=== PATIENT | female | born 1940 | race African-American/Black ===

== ENCOUNTER 2017-01-01 18:30 | Inpatient (IN) | payer BC ==
--- NOTE | ~2017-01-01 | CN ---
Consultation Report [address] [id number] [facility] [place]. [address] NAME: MELANIE FLOREZ : 40 STATUS : ADM IN [facility]#: [id number] AGE: 76 ADM/REG DATE : 01/01/17 MR#: [id number] REPORT SERV DATE: 01/02/17 DICTATED BY: ELIZABETH CHAVEZ DATE: 01/02/17 REPORT STATUS : Draft TRANSCRIBED BY: MODBautista DATE: 01/02/17 CARDIOLOGY CONSULTATION DATE OF CONSULTATION: 01/02/2017 HISTORY OF PRESENT ILLNESS: 76-year-old, female without significant past cardiac history who presents with four-day history of generalized myalgias, fatigue, and intermittent dry, nonproductive cough. The patient reports subjective chills. No subjective fever. Denies chest pain or dyspnea. Denies palpitations, presyncope or syncope. Denies orthopnea or paroxysmal nocturnal dyspnea. Denies lower extremity edema or significant weight gain. The patient reports significant anorexia with marked decrease in fluid and oral intake over the last five days. The patient was seen in the emergency department in the course of evaluation, for unclear reasons, a troponin was ordered which was elevated at 5. It is noted that patient's primary care physician recently prescribed azithromycin pack, however, the patient had no improvement in symptoms following initiation of this. The patient is currently resting comfortably in no distress. PAST MEDICAL HISTORY: Hypertension and hyperlipidemia. PAST SURGICAL HISTORY: Hysterectomy. ALLERGIES: NO KNOWN DRUG ALLERGIES. MEDICATIONS: 1. Amlodipine/benazepril 5/10 mg daily. 2. Azithromycin dose pack 250 mg daily x5 days. 3. Iron polysaccharide 200 mg daily. 4. Metoprolol succinate 50 mg b.i.d. 5. Simvastatin 20 mg daily. REVIEW OF SYSTEMS: Negative for all organ systems except per the history of present illness. SOCIAL HISTORY: The patient denies previous tobacco, alcohol, or illicit drug use. FAMILY HISTORY: Notable only for hypertension. No history of coronary artery disease, cerebrovascular disease in the family. PHYSICAL EXAMINATION: VITAL SIGNS: Blood pressure 100/64, pulse 100, respirations 16 and unlabored, saturating 93% on 2 liters nasal cannula. GENERAL: Fatigued-appearing elderly female, in no acute distress. Consultation Report [place] [address] [id number] [facility] [place]. [address] NAME: MELANIE FLOREZ : 40 STATUS : ADM IN PAT#: [id number] AGE: 76 ADM/REG DATE : 01/01/17 MR#: [id number] REPORT SERV DATE: 01/02/17 DICTATED BY: ELIZABETH CHAVEZ DATE: 01/02/17 REPORT STATUS : Draft TRANSCRIBED BY: BRAYAN DATE: 01/02/17 HEENT: Normal. NECK: Supple, no JVD or bruit, normal carotid upstroke bilaterally, no thyromegaly. LUNGS: Clear to auscultation and percussion. No wheezes, rales or rhonchi. No use of accessory muscles. CARDIOLOGY: Regular rhythm, normal S1, S2, no thrill, no murmur or gallops, normal PMI. No rub is noted. ABDOMEN: Bowel sounds positive, soft, nontender, and nondistended. No masses or aortic bruits. No hepatosplenomegaly or hepatojugular reflux. EXTREMITIES: No edema. Normal pulses. No clubbing or cyanosis. SKIN: Warm and dry, no significant rash. NEUROLOGIC: Alert and oriented x 3. Appropriate mood. LABORATORY DATA: Sodium 140, potassium 4.2, chloride 105, BUN 56, creatinine 1.97(2.08 on admission). Glomerular filtration rate 28 mL/min. Glucose 155. Calcium 8. Magnesium 2.7. WBC 8.9, hemoglobin 15.8, hematocrit 47.5, platelets 178,000. INR 1.1. Serial troponins 5.01, 5.21, and 5.21. BNP elevated 848. Thyroid stimulating hormone is normal at 0.986. Lactate elevated at 3.9. EKG: Sinus tachycardia. Poor R-wave progression suggesting possible previous anterior wall myocardial infarction. Left anterior fascicular block. Influenza screens are negative. Chest x-ray: Mild cardiomegaly. CT of the chest without contrast: Cardiomegaly with small nonspecific pericardial effusion. "No acute CHF pattern" and segmental signs atelectasis in the left lower lobe. No obvious obstructing lung mass or endobronchial lesion. Subtle ill-defined ground glass patchy opacities inferiorly in the bilateral posterior lung bases. Ventilation perfusion scan. "Triple match pattern" of a large segmental sinus ventilation or perfusion defect corresponding to dense atelectasis in the left lower lobe on CT of the chest. Consider intermittent probability for pulmonary embolus. IMPRESSION: Elevated troponin-EKG demonstrates possible previous old anterior wall myocardial infarction. Echocardiogram ordered to evaluate cardiac structure and function and to more clearly identify degree of pericardial effusion. The pericardial effusion is called small by CT. The patient's symptoms appear most consistent with a viral syndrome with possible underlying myocarditis secondary to same as an etiology for elevated troponin. Due to the presence of pericardial effusion and no acute EKG changes in the absence of chest pain, I am not inclined to anticoagulate the patient at this time. She does have an intermediate risk ventilation perfusion scan for pulmonary embolus. This abnormality appears correlate with area of dense atelectasis at the left base. We will defer the same to the hospitalist at this time. We will await results of the echocardiogram. Consultation Report [address] [place]. [address] NAME: MELANIE FLOREZ : 40 STATUS : ADM IN [facility]#: [id number] AGE: 76 ADM/REG DATE : 01/01/17 MR#: [id number] REPORT SERV DATE: 01/02/17 DICTATED BY: ELIZABETH CHAVEZ DATE: 01/02/17 REPORT STATUS : Draft TRANSCRIBED BY: MODBautista DATE: 01/02/17 Thank you for the opportunity to see the patient in consultation. CSL/MODL Ivonne Chavez M.D. / [id number] CC: MD Jacob Sainz M.D.
--- NOTE | ~2017-01-01 | HP ---
History And Physical [id number] [place]. [address] NAME: MELANIE FLOREZ : 40 STATUS : ADM IN [facility]#: [id number] AGE: 76 ADM/REG DATE : 01/01/17 MR#: [id number] REPORT SERV DATE: 01/02/17 DICTATED BY: AMARIS BURGOS DATE: 01/02/17 REPORT STATUS : Draft TRANSCRIBED BY: MODBautista DATE: 01/02/17 DATE OF ADMISSION: 01/01/2017 CHIEF COMPLAINT: Fatigue and cough. HISTORY OF PRESENT ILLNESS: This is a 76-year-old female with medical history of hypertension and dyslipidemia, who presented to the emergency room with complaints of generalized fatigue and cough. The patient reports she was in her usual state of health until 4 days ago where she developed generalized fatigue, generalized muscle pain, and subsequently developed a cough that was productive of whitish sputum. There was associated chills, but denies any fever, no chest pain and no shortness of breath. No palpitations, no leg swelling, no orthopnea, no PND, no presyncopal or syncopal episode. The patient works as a caregiver one of her patient was recently diagnosed with pneumonia and was successfully treated with antibiotics at the hospital. The patient also reports that she has never had any symptoms similar to this in the past. She was never diagnosed with any coronary artery disease or congestive heart failure. The patient reports denies any history of recent travel, denies any prolonged immobilization or recent surgery. Of note, the patient had called her primary care physician who prescribed azithromycin 250 mg tab for possible bronchitis/pneumonia, but had no significant improvement in her symptoms. Hence, the patient decided to come to the ER for further evaluation. On presentation to the ER, the patient was tachycardic and noted to have significantly elevated troponin of 5.08, but had no chest pain, no shortness of breath, and was not hypoxic. An assessment of NSTEMI was made in the ER and the Hospitalist Service was contacted for admission. At the time of my evaluation, the patient reports that she has never had any chest pain, no shortness of breath. No leg swelling. The rest of the HPI was as dictated above. PAST MEDICAL HISTORY: 1. Hypertension. 2. Dyslipidemia. PAST SURGICAL HISTORY: Hysterectomy. ALLERGIES: NO KNOWN DRUG ALLERGIES. CURRENT MEDICATIONS: 1. Lotrel 5/10 mg one cap every morning. 2. Zocor 20 mg p.o. every day. 3. Toprol 50 mg p.o. b.i.d. 4. Z-Jagdish 250 mg p.o. daily for 5 days started on 12/30/2016. History And Physical [address] [address] NAME: MELANIE FLOREZ : 40 STATUS : ADM IN [facility]#: [id number] AGE: 76 ADM/REG DATE : 01/01/17 MR#: [id number] REPORT SERV DATE: 01/02/17 DICTATED BY: AMARIS BURGOS DATE: 01/02/17 REPORT STATUS : Draft TRANSCRIBED BY: BRAYAN DATE: 01/02/17 SOCIAL HISTORY: The patient denies drinking alcohol, smoking cigarettes or illicit drug use. FAMILY HISTORY: Significant for hypertension, no known history of coronary artery disease in the family. PHYSICAL EXAMINATION: VITAL SIGNS: Blood pressure was 142/60, pulse was 128 beats per minute, saturating 99% on room air, respiratory rate 18 cycles per minute. Physical examination general not in any acute distress. Lying comfortably in bed. HEENT: Normocephalic atraumatic. Extraocular muscles intact. Pupils are equal, round, and reactive. No pallor. No jaundice. No anicteric. Oral mucosa moist. CHEST: Equal expansion. Nontender. LUNGS: Overall prominent rhonchi in the right lower lung field. No crackles and no wheezes. CARDIOVASCULAR: Regular rate and rhythm. Tachycardic, S1 and S2. No murmurs, no gallops. No rubs. ABDOMEN: Bowel sounds normoactive. Soft and nontender. No palpably enlarged organomegaly. No hepatojugular reflux. LOWER EXTREMITIES: No pedal edema. LABORATORY DATA: Chemistry; sodium 139, potassium 4.0, chloride 101, bicarb 17, BUN 47, creatinine 2.08, GFR 23. Glucose 189. Calcium 8.3, magnesium 2.9. Troponin 5.19. Hematology; hemoglobin 16.8, hematocrit 50, MCV 89.3, platelet 174. PT 13.8 and INR 1.1. 1. Influenza A and B screen negative. 2. BNP 848.4. 3. Procalcitonin is 0.29. 4. Lactate 4.36. 5. Chest CT without contrast. IMPRESSION: 1. Cardiomegaly with a small nonspecific pericardial effusion, no acute congestive heart failure pattern. 2. Dense segmental size atelectasis left lower lobe. No visible associated central obstructing lung mass or endocardial lesion. 3. Septal ill defined ground glass patchy opacity inferiorly segment and both posterior lung bases of uncertain etiology. This may represent ill-defined atelectasis or early infectious/inflammatory process or early pneumonia. 4. V/Q scan. Impression; triple much part of a large segmental size ventilation or perfusion defects corresponding to this atelectasis of the left lower lobe on CT chest. This is considered of indeterminate probability for pulmonary embolus. ASSESSMENT AND PLAN: 1. Elevated troponin likely due to possible viral myocarditis. Given, the patient's constellation of respiratory symptoms of cough, shortness of breath, exposure to a possible to the patient with acute febrile illness without any chest pain, this is concerning for possible myocarditis pattern. At this time, we will hold off initiating heparin drip. Given also the presence of pericardial effusion and less concern for a possible ischemia at this time. We will add aspirin to patient's medication 81 mg. We will continue to monitor patient's troponin. This case has been discussed with the magistrate. Also, it is noted that the patient's V/Q scan shows indeterminate probability for PE. Also the CT findings of possible bronchopneumonia also noted. History And Physical [address] [address] NAME: MELANIE FLOREZ : 40 STATUS : ADM IN [facility]#: [id number] AGE: 76 ADM/REG DATE : 01/01/17 MR#: [id number] REPORT SERV DATE: 01/02/17 DICTATED BY: AMARIS BURGOS DATE: 01/02/17 REPORT STATUS : Draft TRANSCRIBED BY: MODL DATE: 01/02/17 2. Pneumonia. Based on the CT finding, although patient has no significant elevation in white cell count and procalcitonin is 0.029, given the patient has received antibiotics prior to presentation and this may max on inflammatory response at this time. Out of abundance of caution, I will continue patient on broad-spectrum antibiotics with cefepime and azithromycin at this time. 3. Pericardial effusion. The patient noted to have pericardial effusion both on chest x- ray and on CT imaging. We will order an echocardiogram in the morning and to continue to monitor. Cardiology has been notified about this new finding of pericardial effusion on CT. It is noted that at this time, the patient's blood pressure is stable. No evidence of tamponade physiology on physical examination. We will continue to monitor patient's vitals closely. 4. Acute kidney injury likely secondary to reduced p.o. intake secondary to severe fatigue. We will continue to monitor the patient's creatinine. We will hold of initiating IV fluid at this time. Given the patient's significantly elevated BNP. We will encourage the patient to increase oral p.o. intake at this time. We will continue to monitor creatinine closely. 5. Code status. Full code. 6. Admission and disposition inpatient. 7. Consult Cardiology input appreciated. IOO/MODL aris Burgos MD / [id number] CC: MD Jacob Sainz M.D.
--- NOTE | ~2017-01-01 | OP ---
Record Of Critical access hospital [address] [facility] [place]. [address] NAME: MELANIE FLOREZ : 40 STATUS : ADM IN [facility]#: [id number] AGE: 76 ADM/REG DATE : 01/01/17 MR#: [id number] REPORT SERV DATE: 01/04/17 DICTATED BY: VELMA PATEL DATE: 01/04/17 REPORT STATUS : Draft TRANSCRIBED BY: MODL DATE: 01/04/17 DATE OF PROCEDURE: 01/04/2017 PREOPERATIVE DIAGNOSES: 1. Large pericardial effusion. 2. Possible myocarditis syndrome. 3. Hypertension. 4. Obesity. 5. Acute kidney injury. POSTOPERATIVE DIAGNOSES: 1. Large pericardial effusion. 2. Possible myocarditis syndrome. 3. Hypertension. 4. Obesity. 5. Acute kidney injury. PROCEDURE PERFORMED: Subxiphoid pericardial window with drainage of pericardial fluid. SURGEON: Velma Patel M.D. MILIEU MANAGER: Jamie Wills. ANESTHESIA: General. REFERRING BELL STAFF: Scott Chavez M.D. INDICATIONS: This is an obese 76-year-old female who presented after five days of malaise and fatigue and anorexia. She admitted to fevers and chills at home and mild recent cough. On admission to the hospital, the patient was short of breath, but dyspnea quickly resolved. On her evaluation in the emergency room, she was found to have an elevated troponin and Cardiology was consulted. A CT scan in the emergency room demonstrated small pericardial effusion. There was concern because the next day the troponin level bumped slightly. She also has some supraventricular tachycardia. She underwent echocardiogram that demonstrated a large circumferential pericardial effusion. We were asked to see the patient for possible drainage of the pericardial effusion. Ventricular function was mildly reduced with ejection fraction of 40%. It was felt that her clinical picture and elevated troponin fit possible myocarditis syndrome. We were asked to perform a pericardial window with drainage of the pericardial fluid for treatment and further evaluation of the pericardial effusion. We discussed the operation with the patient and her family and they wished to proceed. FINDINGS: 1. There were about 160 mL of clear serous fluid around the pericardium, this was sent for cultures and cytology. 2. The pericardium itself was thin and pliable and did not appear acutely inflamed. It was sent for pathology. Record Of Operation [facility] [address] [facility] [place]. [address] NAME: MELANIE FLOREZ : 40 STATUS : ADM IN PAT#: [id number] AGE: 76 ADM/REG DATE : 01/01/17 MR#: [id number] REPORT SERV DATE: 01/04/17 DICTATED BY: VELMA PATEL DATE: 01/04/17 REPORT STATUS : Draft TRANSCRIBED BY: BRAYAN DATE: 01/04/17 DESCRIPTION OF PROCEDURE: The patient was brought to the operating suite where general anesthesia was induced, airway was secured with an endotracheal tube. No hypotension was noted. The patient's chest and abdomen were prepped with Hibiclens, ChloraPrep, draped with Ioban and sterile sheets. DANUTA probe was placed by Anesthesia and examination demonstrated a moderate-sized pericardial effusion with minimal anterior and inferior circumferential nature of the fluid. An incision was made directly over the xiphoid and carried through the subcutaneous tissue and skin. The linea alba was split in the midline for several centimeters inferior to the xiphoid. Retractor was placed under the xiphoid and left costal margin. This was elevated. We dissected cranial behind the sternum. We identified a pericardial fat and this was swept away from the pericardium. A small hole was made in the pericardium and about 160 mL of serous fluid were removed. Some of this was sent for cultures and cytology. Then, the pericardial space was irrigated with saline. DANUTA examination demonstrated resolution of effusion. A 19-mm Morales drain was placed through a separate stab incision and directed in the posterior pericardial space and secured to the skin. Once hemostasis was assured, the linea alba and clavipectoral fascia were reapproximated with #1 Stratafix as was subcutaneous tissue. The skin was closed in a subcuticular fashion. The patient tolerated the procedure well no complications. Sponge and needle counts were correct. DISPOSITION: The patient was extubated and taken to recovery room in stable condition. IDALIA/BRAYAN Velma Patel M.D. / [id number] CC: Kodi A. MD Ivonne Roth M.D.
--- NOTE | ~2017-01-01 | CN ---
Consultation Report [facility] [address] [place]. [address] NAME: MELANIE FLOREZ : 40 STATUS : ADM IN PAT#: [id number] AGE: 76 ADM/REG DATE : 01/01/17 MR#: [id number] REPORT SERV DATE: 01/03/17 DICTATED BY: HERB JACK DATE: 01/03/17 REPORT STATUS : Draft TRANSCRIBED BY: MODL DATE: 01/03/17 CONSULTATION DATE OF CONSULTATION: 01/02/2017 REASON FOR CONSULTATION: Moderate to large pericardial effusion, consideration for possible pericardial window. CHIEF COMPLAINT: "I have been sick with a cough." HISTORY OF PRESENT ILLNESS: This is a 76-year-old black female, very active, who reports that last week she developed a cough, fatigue, and general malaise. She notes that her employer had been ill with pneumonia, she also had children in her household that were sick, and she thought she might have a pneumonia. She denies having had any fevers, however. She has had chills. She denies any chest pain, tightness, pressure, syncope, near syncope, orthopnea, paroxysmal nocturnal dyspnea. She did call her primary care physician, Dr. Comer, who prescribed a Z-Jagdish. She did not have immediate improvement in her symptoms and so she came to the hospital. In the hospital, she underwent further variations with EKG which was abnormal, followed by troponin I, which was elevated. Chest x-ray was not diagnostic, and she did undergo a CT of the chest which was abnormal with bilateral infiltrates and airspace disease as well as left lower lobe atelectasis. Because of her elevated troponin I and abnormal EKG, cardiology consultation was obtained, and yesterday echocardiogram showed moderate to large pericardial effusion. We were asked to see for possible pericardial window and this was discussed with the patient and her daughter in the room today. PRIOR MEDICAL HISTORY: Significant for hypertension, hyperlipidemia, treated. She has a remote history of tobacco use. PRIOR SURGICAL HISTORY: Significant for hysterectomy. ALLERGIES: NONE KNOWN. MEDICATIONS AT HOME: Include Lotrel 5/10 one p.o. q.a.m., Z-Jagdish 250 mg p.o. x5 days, EzFe 200 mg p.o. q.a.m., metoprolol 50 mg p.o. b.i.d., and Zocor 20 mg p.o. q.a.m. FAMILY HISTORY: Significant for hypertension. She denies any family history of coronary artery disease or other disease processes. SOCIAL HISTORY: She has a remote history of tobacco use. Has not smoked in over 20 years. Denies use of alcohol or illicit drugs. She is employed. REVIEW OF SYSTEMS: GENERAL: Positive for fatigue and malaise. Negative for night sweats, recent weight Consultation Report [address] [place]. [address] NAME: MELANIE FLOREZ : 40 STATUS : ADM IN [facility]#: [id number] AGE: 76 ADM/REG DATE : 01/01/17 MR#: [id number] REPORT SERV DATE: 01/03/17 DICTATED BY: HERB JACK DATE: 01/03/17 REPORT STATUS : Draft TRANSCRIBED BY: BRAYAN DATE: 01/03/17 change, etc. RESPIRATORY: Positive for dry nonproductive cough. Negative for hemoptysis. Negative for wheezing. CARDIOVASCULAR: Negative for chest pain. Negative for prior heart problems. Negative for heart murmur or palpitations. GASTROINTESTINAL: Negative. GENITOURINARY: Negative. MUSCULOSKELETAL: Negative. NEUROLOGIC: Negative. HEMATOLOGY/ONCOLOGY. Negative. No history of blood clots or easy bruising or free bleeding. Otherwise, negative or as above. PHYSICAL EXAMINATION: GENERAL: She is a pleasant black female, in no acute distress. Her height is 170.18 cm. Weight 75.74 kg. VITAL SIGNS: Blood pressure 115/56, temperature 96.8, pulse is 99, respirations 18 regular and unlabored, and saturation 95% on room air. SKIN, HAIR, AND NAILS: Good hygiene. No lesions, masses, or rashes. HEENT: Normocephalic, atraumatic. Pupils are equal, round, and reactive to light and accommodation, wearing glasses. Sclerae clear, conjunctivae pink. Oral and buccal mucosa pink and moist. She has upper dentures in place. Mallampati class II airway. NECK: Supple. No restricted range of motion. No carotid bruits. No jugular venous distention. CHEST: Diminished breath sounds in the left lung base, otherwise clear without wheezes or rales. CARDIOVASCULAR: Regular rate and rhythm without murmur or rub. She has palpable symmetric central peripheral pulses, no clubbing, cyanosis, or edema. ABDOMEN: Soft, obese, nontender with normoactive bowel sounds. No hepatosplenomegaly. GENITOURINARY/RECTAL: Declined. MUSCULOSKELETAL: No kyphoscoliosis. No asymmetry. NEUROLOGIC: Alert and oriented to day, date, place, and situation. Speech is clear, fluent. No focal deficits. DATA: EKG showing left anterior fascicular block, left ventricular hypertrophy, nonspecific ST-T wave abnormality and yesterday rhythm strip showing supraventricular tachycardia with conversion to sinus rhythm after IV adenosine. CT chest from the 01/02/2017 is reviewed showing dense segmental size atelectasis left lower lobe and subtle ill-defined ground-glass patchy opacities inferiorly in both posterior lung bases of uncertain etiology. Noted was cardiomegaly with at that time, small nonspecific pericardial effusion, and no CHF pattern. Ventilation perfusion study showed ventilation perfusion defect in the left lung base corresponding with the area of atelectasis. Consultation Report [address] [address] NAME: MELANIE FLOREZ : 40 STATUS : ADM IN [facility]#: [id number] AGE: 76 ADM/REG DATE : 01/01/17 MR#: [id number] REPORT SERV DATE: 01/03/17 DICTATED BY: HERB JACK DATE: 01/03/17 REPORT STATUS : Draft TRANSCRIBED BY: BRAYAN DATE: 01/03/17 LABORATORY DATA: Today, sodium is 138, potassium 4.2, chloride 102, CO2 of 26, BUN 52, creatinine 1.42. CBC shows WBC is 9.1, hemoglobin 14.9 g, hematocrit 44.9%, and platelets 205,000. Urinalysis had small leukocyte esterase, no hematuria, no glucosuria. IMPRESSION: Moderate to large pericardial effusion. We were asked to see for possible drainage. This was discussed with the patient and her daughter today, and we talked about the surgery, usual perioperative course, indications, benefits, and risks. Risks include, but are not limited to, things such as pain, infection, pneumonia, low blood pressure resulting in damage to kidneys or liver, bleeding and need for blood or blood product transfusion, and even . The patient indicates her understanding and is willing to proceed. We have tentatively scheduled this for tomorrow and we will get back to the patient with a more certain time. We appreciate the opportunity to participate in her care. MAYNOR/BRAYAN Herb Jack N.P. / [id number] CC: MD Jacob Sainz M.D.
--- NOTE | ~2017-01-01 | DS ---
Discharge Summary [address] [id number] [place]. [address] NAME: MELANIE MORENO : 40 STATUS : DIS IN PAT#: [id number] AGE: 76 ADM/REG DATE : 01/01/17 MR#: [id number] REPORT SERV DATE: 01/12/17 DICTATED BY: RICK LUCAS DATE: 01/12/17 REPORT STATUS : Draft TRANSCRIBED BY: MODBautista DATE: 01/12/17 ADMISSION DATE: 01/01/2017 DISCHARGE DATE: 01/11/2017 DISCHARGE DIAGNOSES: 1. Large pericardial effusion on arrival, believed to be secondary to viral etiology. 2. Supraventricular tachycardia. 3. New atrial fibrillation. 4. Elevated troponin to have followup with Cardiology outpatient. 5. Acute kidney injury. 6. Community-acquired pneumonia. Completed treatment while inpatient. CONSULTATIONS: Dr. Chavez, Cardiology. Dr. Patel, CT surgery. PROCEDURE PERFORMED: Xiphoid pericardial window with drainage of pericardial fluid. DISCHARGE MEDICATIONS: Eliquis 5 mg one tab p.o. b.i.d., amiodarone 200 mg one tab p.o. b.i.d., metoprolol 50 mg one tab p.o. b.i.d. XL per Cardiology, atorvastatin 40 mg one tab p.o. at bedtime, Maxzide 25 mg one tab p.o. daily, Lotrel was stopped at this time, iron 200 mg p.o. every morning, Z-Jagdish was stopped. DISCHARGE FOLLOWUP: The patient declined Home Health. Follow up with CT Surgery and Cardiology for further completion of workup for troponins and resolution of symptoms; and PCP for followup of CBC, BMP, and hospital discharge. HOSPITAL COURSE: Please see H and P for complete details of HPI and interim summary by Dr. Anibal Tejeda for interim course. Briefly, Ms. Moreno is a very pleasant 76-year-old female with history of hypertension and hyperlipidemia, who presented after having fatigue and cough, was found to have pneumonia component, but additionally, cardiomegaly with nonspecific pericardial effusion. The patient did have a systolic ejection fraction of 45% with moderate left ventricular hypertrophy, but was concerned for additional water bottle appearance on x-rays. The patient was then found to have a large pericardial effusion requiring drainage with window. The patient tolerated the procedure well. Was able to have removal, and subsequent followup imaging showed stability with this. However, during monitoring, the patient did have elevated troponins and new decompensated EF. This will be continued to be followed up and worked up in outpatient setting to give time for healing from pericardial effusion. The patient did have multiple episodes of SVT. However, this did improve with adenosine and approximately on initial discharge disposition planning, the patient had new-onset atrial fibrillation, was placed on diltiazem. Had on and off episodes. Changed to amiodarone temporarily and placed on anticoagulation. The patient did have initial concern for pulmonary embolism and was unable to get CT initially because the patient did have acute kidney injury. When the patient was hydrated and treated for pneumonia and pericardial effusion, the patient was able to tolerate CT PE protocol, which was negative. The patient did have organized thrombus that was discussed with Cardiology. Independently, this clot was likely sequelae of pericardial effusion and by itself would not require anticoagulation; however, in the setting of atrial fibrillation, Discharge Summary [address] [place]. [address] NAME: MELANIE MORENO : 40 STATUS : DIS IN PAT#: [id number] AGE: 76 ADM/REG DATE : 01/01/17 MR#: [id number] REPORT SERV DATE: 01/12/17 DICTATED BY: RICK LUCAS DATE: 01/12/17 REPORT STATUS : Draft TRANSCRIBED BY: BRAYAN DATE: 01/12/17 anticoagulation was initiated for protection. All questions were answered with the patient and family at bedside. Discharge planning, education, and med reconciliation took greater than 30 minutes. DDN/MODL Rick Lucas MD / [id number] CC: MD Jacob Rawls M.D.
--- NOTE | ~2017-01-01 | IDS ---
Interim Discharge Summary [facility] [address] [place]. [address] NAME: MELANIE FLOREZ : 40 STATUS : ADM IN [facility]#: [id number] AGE: 76 ADM/REG DATE : 01/01/17 MR#: [id number] REPORT SERV DATE: 01/04/17 DICTATED BY: DATE: REPORT STATUS : Draft TRANSCRIBED BY: MODL DATE: 01/04/17 ADMISSION DATE: 01/01/2017 DISCHARGE DATE: INTERIM DISCHARGE DIAGNOSES: 1. Large pericardial effusion. 2. Supraventricular tachycardia. 3. Elevated troponin. 4. Acute kidney injury. 5. Community-acquired pneumonia. CONSULTING PHYSICIANS: Include Dr. Chavez with [facility] and Dr. Patel, CT surgeon. IMAGING: Includes multiple portable chest x-rays, the first being 01/01/2017 showing no acute process as read by the radiologist. However, there is a "water bottle appearance" suggestive of pericardial effusion. She also had a chest CT without contrast, which demonstrated cardiomegaly with a small nonspecific pericardial effusion. No acute CHF pattern. There is a dense segmental size atelectasis in the left lower lobe. No visible associated central obstructing mass or endobronchial lesion. There is a subtle ill-defined ground-glass patchy opacities inferiorly in both posterior lung bases of uncertain etiology. Likely, this is atelectasis, could be early pneumonia. The patient had a transthoracic echocardiogram, which demonstrated mildly decreased left ventricular systolic function with an estimated ejection fraction of 45%, moderate left ventricular hypertrophy, normal right ventricular size and mildly decreased systolic function. No significant valvular regurgitation or stenosis was noted. There is a medium to large size circumferential pericardial effusion without evidence of tamponade noted. Echogenic material along the right ventricle free wall and anterior LV/RV within the pericardial space suggestive of organized pericardial thrombus. The patient also had a ventilation perfusion scan, which demonstrated a "triple match pattern of a large segmental size ventilation or perfusion defect. V/Q scan is intermediate probability for pulmonary embolism. HOSPITAL COURSE/PROBLEM LIST: 1. Large pericardial effusion. The patient underwent a pericardial window by Dr. Patel today on 01/04/2017. Pericardial fluid was sent for culture, which was negative. There was about 160 mL of clear serous fluid around the pericardium that was sent for cultures and cytology. The pericardium was sent for pathology as well. The patient is doing well post pericardial window. Vital signs are stable. 2. Elevated troponin. Her troponin was 5.21. She denies any chest pain. She has not had chest pain what so ever. During her hospital course or prior to admission, her only symptom was dyspnea on admission. This is likely due to the large pericardial effusion mentioned above. [facility] is following. Unclear of the plan at this time whether the patient will have a heart catheterization or not. 3. SVT. The patient has had multiple episodes of SVT. This is likely related to the pericardial effusion. Hopefully, this will resolve now that she has had a pericardial window. She had an episode two days ago, for which she received one dose of adenosine which resolved the issue and then again last night around 10 p.m., she had an SVT with Interim Discharge Summary [address] [address] NAME: MELANIE FLOREZ : 40 STATUS : ADM IN [facility]#: [id number] AGE: 76 ADM/REG DATE : 01/01/17 MR#: [id number] REPORT SERV DATE: 01/04/17 DICTATED BY: DATE: REPORT STATUS : Draft TRANSCRIBED BY: MODL DATE: 01/04/17 a heart rate in the 180s and received one dose of adenosine 6 mg IV, which also resolved the issue. 4. Acute kidney injury. This has resolved. Her creatinine is down to 0.98. 5. Pneumonia. Based on the imaging and the patient's shortness of breath on initial presentation, the patient was being worked up for pneumonia; however, procalcitonin is negative. All cultures were negative. She has not had a fever. White blood cell count is normal, so I will discontinue her Levaquin. 6. Possible pulmonary embolism. V/Q scan was intermediate risk for pulmonary embolism. We were unable to place the patient on heparin drip due to the fact that she had a large pericardial effusion and needed a pericardial window. Unclear moving forward whether or not she will need to be anticoagulated at this time, it would be contraindicated. Again, the patient is hemodynamically stable. Awaiting Cardiology's plan to move forward. Further workup if cytology and pericardial biopsy are negative. The patient will likely need a further workup for her pericardial effusion precipitating factor. If the patient remained stable and it does not reaccumulate, maybe she would be safe to do this as an outpatient. CLR/MODL Anibal Tejeda NP / [id number] CC: MD Jacob Sainz M.D. Darshan D. Naik, MD
[2017-01-01 16:10] LABS: BASOPHILS 1.4 %; BASOPHILS ABSOLUTE 0.13 10/3/uL (0.0-0.16); EOSINOPHILS 0 %; HEMOGLOBIN 16.8 g/dL (12.0-16.0); IMMATURE GRANULOCYTES 0.3 %; IMMATURE GRANULOCYTES ABSOLUTE 0.03 10/3/uL (0.0-0.11); LYMPHOCYTES 20.3 %; LYMPHOCYTES ABSOLUTE 1.91 10/3/uL (0.67-4.30); MEAN CORPUS HGB CONC 33.6 g/dL (32.0-36.0); MEAN CORPUSCULAR VOLUME 89.3 fL (80-100); MEAN PLATELET VOLUME 11.1 fL (9.2-13.0); MONOCYTES 10.9 %; MONOCYTES ABSOLUTE 1.03 10/3/uL (0.21-1.20); NEUTROPHILS 67.1 %; NEUTROPHILS ABSOLUTE 6.31 10/3/uL (2.02-8.40); NUCLEATED RED BLOOD CELLS 0.6 /100WBC (0-0); PLATELET COUNT 174 10/3/uL (150-400)
[2017-01-01 16:11] LABS: ER CBC TAT 0 Hrs 09 Mins; MANUAL DIFF NO %; RBC DISTRIBUTION WIDTH 17.9 % (12.0-16.0); WHITE BLOOD CELLS 9.4 10/3/uL (4.5-10.5)
[2017-01-01 16:14] LABS: INTERNATIONAL NORMAL RATI 1.1 UNITS (-); PARTIAL THROMBO TIME 25.2 SEC (22.5-37.2); PROTIME (NOT ORD) 13.8 SEC (12.0-14.5)
[2017-01-01 16:24] LABS: CALCIUM, SERUM 8.3 MG/DL (8.5-10.4); CHLORIDE, SERUM 101 MMOL/L (96-112); POTASSIUM, SERUM 4.4 MMOL/L (3.5-5.3); SODIUM, SERUM 139 MMOL/L (135-148)
[2017-01-01 16:25] LABS: BUN (BLOOD UREA NITROGEN) 47 MG/DL (6-23); CHEST PAIN PROFILE TAT 0 Hrs 23 Mins; CO2 (CARBON DIOXIDE) 17 MMOL/L (24-34); CREATININE 2.08 MG/DL (0.55-1.02); GFR AFRICAN AMERICAN 26 ML/MIN (>=60); GFR NON AFRICAN AMERICAN 23 ML/MIN (>=60); GLUCOSE, SERUM 189 MG/DL (60-99); TROPONIN I 5.16 NG/ML (<0.05)
[2017-01-01 17:09] LABS: ER DIFF TAT 1 Hrs 07 Mins; LYMPHOCYTES 18 %; LYMPHOCYTES ABSOLUTE (CALC) 1.69 10/3/uL (0.67-4.30); MONOCYTES 9 %; MONOCYTES ABSOLUTE (CALC) 0.85 10/3/uL (0.21-1.20); NEUTROPHILS ABSOLUTE (CALC) 6.86 10/3/uL (2.02-8.40); PLATELET ESTIMATE ADQ (ADEQUATE); RBC MORPHOLOGY NORM (NORMAL); SEGMENTED NEUTROPHIL (0) 73 %; TOTAL NUCLEATED CELLS 100
[2017-01-01 17:40] LABS: INFLUENZA A SCREEN NEGATIVE (NEGATIVE); INFLUENZA B SCREEN NEGATIVE (NEGATIVE)
[2017-01-01 18:22] LABS: LACTATE 4.3 MMOL/L (0.3-2.4)
[2017-01-01] MEDS ORDERED: LOTREL1 CA1 PO (19:33)
[2017-01-01] MEDS ORDERED: TOPXL50 PO (19:33)
[2017-01-01] MEDS ORDERED: ZOCOR20 PO (19:33)
[2017-01-01] MEDS ORDERED: EZFE 200200 MG PO (19:34)
[2017-01-01] MEDS ORDERED: Z-PAK PO (19:36)
[2017-01-01 20:48] LABS: TROPONIN I 5.01 NG/ML (<0.05)
[2017-01-01 23:21] LABS: FREE T4 1.45 NG/DL (0.76-1.46); PHOSPHORUS, SERUM 4.1 MG/DL (2.5-4.5); ULTRASENSITIVE TSH 0.986 MCIU/ML (0.358-3.740)
[2017-01-02 02:38] LABS: HEMATOCRIT 47.5 % (36.0-48.0); HEMOGLOBIN 15.8 g/dL (12.0-16.0); MEAN CORPUS HGB CONC 33.3 g/dL (32.0-36.0); MEAN CORPUSCULAR HEMOGLOB 29.9 pg (26.0-34.0); MEAN PLATELET VOLUME 11.2 fL (9.2-13.0); PLATELET COUNT 178 10/3/uL (150-400); RBC DISTRIBUTION WIDTH 17.5 % (12.0-16.0); RED CELL COUNT 5.28 10/6/uL (4.0-5.6); WHITE BLOOD CELLS 8.9 10/3/uL (4.5-10.5)
[2017-01-02 02:41] LABS: MANUAL DIFF YES %
[2017-01-02 02:50] LABS: CHLORIDE, SERUM 105 MMOL/L (96-112); CREATININE 1.97 MG/DL (0.55-1.02); GFR AFRICAN AMERICAN 28 ML/MIN (>=60); GFR NON AFRICAN AMERICAN 24 ML/MIN (>=60); GLUCOSE, SERUM 155 MG/DL (60-99); PHOSPHORUS, SERUM 4.4 MG/DL (2.5-4.5); POTASSIUM, SERUM 4.2 MMOL/L (3.5-5.3); SODIUM, SERUM 140 MMOL/L (135-148)
[2017-01-02 02:52] LABS: ALBUMIN 2.6 G/DL (3.5-5.0); BUN (BLOOD UREA NITROGEN) 56 MG/DL (6-23); CO2 (CARBON DIOXIDE) 23 MMOL/L (24-34); TROPONIN I 5.21 NG/ML (<0.05)
[2017-01-02 03:03] LABS: BAND NEUTROPHILS 3 %; LYMPHOCYTES 20 %; LYMPHOCYTES ABSOLUTE (CALC) 1.78 10/3/uL (0.67-4.30); MONOCYTES 6 %; MONOCYTES ABSOLUTE (CALC) 0.53 10/3/uL (0.21-1.20); NEUTROPHILS ABSOLUTE (CALC) 6.59 10/3/uL (2.02-8.40); PLATELET ESTIMATE ADQ (ADEQUATE); RBC MORPHOLOGY NORM (NORMAL); SEGMENTED NEUTROPHIL (0) 71 %; TOTAL NUCLEATED CELLS 100
[2017-01-02 03:04] LABS: GIANT PLATELET OCC; REACTIVE LYMPHS OCC (0-2%) (0-5%)
[2017-01-02 12:41] LABS: ASCORBIC ACID (UR NOT ORDER) NEG (NEG); BILIRUBIN, URINE NEGATIVE (NEG); KETONE, URINE NEGATIVE (NEG); LEUKOCYTE ESTERASE(NOT OR SMALL (NEG); WBC (NOT ORDERED) (RFLEX) 15 (0-5)
[2017-01-03 04:37] LABS: BASOPHILS 0.2 %; BASOPHILS ABSOLUTE 0.02 10/3/uL (0.0-0.16); EOSINOPHILS 0.4 %; EOSINOPHILS ABSOLUTE 0.04 10/3/uL (0.0-0.53); HEMATOCRIT 44.9 % (36.0-48.0); HEMOGLOBIN 14.9 g/dL (12.0-16.0); IMMATURE GRANULOCYTES 0.5 %; IMMATURE GRANULOCYTES ABSOLUTE 0.05 10/3/uL (0.0-0.11); LYMPHOCYTES 29.9 %; LYMPHOCYTES ABSOLUTE 2.72 10/3/uL (0.67-4.30); MEAN CORPUS HGB CONC 33.2 g/dL (32.0-36.0); MEAN CORPUSCULAR VOLUME 90.3 fL (80-100); MEAN PLATELET VOLUME 10.8 fL (9.2-13.0); MONOCYTES 15.7 %; MONOCYTES ABSOLUTE 1.43 10/3/uL (0.21-1.20); NEUTROPHILS 53.3 %; NEUTROPHILS ABSOLUTE 4.84 10/3/uL (2.02-8.40); PLATELET COUNT 205 10/3/uL (150-400); RBC DISTRIBUTION WIDTH 17.9 % (12.0-16.0); RED CELL COUNT 4.97 10/6/uL (4.0-5.6); WHITE BLOOD CELLS 9.1 10/3/uL (4.5-10.5)
[2017-01-03 04:39] LABS: MANUAL DIFF NO %
[2017-01-03 04:56] LABS: A/G RATIO 0.6 (0.7-1.9); ALBUMIN 2.6 G/DL (3.5-5.0); CALCIUM, SERUM 7.9 MG/DL (8.5-10.4); CHLORIDE, SERUM 102 MMOL/L (96-112); CO2 (CARBON DIOXIDE) 26 MMOL/L (24-34); GLOBULIN 4.2 G/DL (2.5-4.1); POTASSIUM, SERUM 4.2 MMOL/L (3.5-5.3); SGOT(AST) 37 U/L (5-40); SGPT(ALT) 20 U/L (5-65); SODIUM, SERUM 138 MMOL/L (135-148); TOTAL PROTEIN 6.8 G/DL (6.0-8.5)
[2017-01-03 04:58] LABS: ALKALINE PHOSPHATASE 61 U/L (45-117); BUN (BLOOD UREA NITROGEN) 52 MG/DL (6-23); CREATININE 1.42 MG/DL (0.55-1.02); GFR AFRICAN AMERICAN 41 ML/MIN (>=60); GFR NON AFRICAN AMERICAN 36 ML/MIN (>=60); GLUCOSE, SERUM 98 MG/DL (60-99); PHOSPHORUS, SERUM 3.4 MG/DL (2.5-4.5); TOTAL BILIRUBIN 1.3 MG/DL (0-1.2)
[2017-01-04 04:41] LABS: BASOPHILS 0.2 %; BASOPHILS ABSOLUTE 0.02 10/3/uL (0.0-0.16); EOSINOPHILS 0.7 %; EOSINOPHILS ABSOLUTE 0.06 10/3/uL (0.0-0.53); IMMATURE GRANULOCYTES 1.1 %; IMMATURE GRANULOCYTES ABSOLUTE 0.09 10/3/uL (0.0-0.11); INTERNATIONAL NORMAL RATI 1.2 UNITS (-); LYMPHOCYTES 27.6 %; LYMPHOCYTES ABSOLUTE 2.31 10/3/uL (0.67-4.30); MEAN CORPUS HGB CONC 33.3 g/dL (32.0-36.0); MEAN CORPUSCULAR VOLUME 89.9 fL (80-100); MEAN PLATELET VOLUME 9.9 fL (9.2-13.0); MONOCYTES 12.9 %; MONOCYTES ABSOLUTE 1.08 10/3/uL (0.21-1.20); NEUTROPHILS 57.5 %; NUCLEATED RED BLOOD CELLS 1.2 /100WBC (0-0); PARTIAL THROMBO TIME 25.3 SEC (22.5-37.2); PLATELET COUNT 225 10/3/uL (150-400); RBC DISTRIBUTION WIDTH 17.8 % (12.0-16.0); RED CELL COUNT 4.67 10/6/uL (4.0-5.6); WHITE BLOOD CELLS 8.4 10/3/uL (4.5-10.5)
[2017-01-04 04:43] LABS: MANUAL DIFF NO %
[2017-01-04 04:49] LABS: BUN (BLOOD UREA NITROGEN) 33 MG/DL (6-23); CALCIUM, SERUM 8.3 MG/DL (8.5-10.4); CHLORIDE, SERUM 103 MMOL/L (96-112); CO2 (CARBON DIOXIDE) 24 MMOL/L (24-34); CREATININE 0.98 MG/DL (0.55-1.02); GFR AFRICAN AMERICAN 65 ML/MIN (>=60); GFR NON AFRICAN AMERICAN 56 ML/MIN (>=60); GLUCOSE, SERUM 105 MG/DL (60-99); PHOSPHORUS, SERUM 3.2 MG/DL (2.5-4.5); POTASSIUM, SERUM 3.9 MMOL/L (3.5-5.3); SODIUM, SERUM 139 MMOL/L (135-148)
[2017-01-05 05:45] LABS: BASOPHILS 0.1 %; BASOPHILS ABSOLUTE 0.01 10/3/uL (0.0-0.16); EOSINOPHILS 0 %; HEMATOCRIT 40.9 % (36.0-48.0); HEMOGLOBIN 13.2 g/dL (12.0-16.0); LYMPHOCYTES 11.1 %; MANUAL DIFF NO %; MEAN CORPUS HGB CONC 32.3 g/dL (32.0-36.0); MEAN CORPUSCULAR HEMOGLOB 29.4 pg (26.0-34.0); MEAN CORPUSCULAR VOLUME 91.1 fL (80-100); MEAN PLATELET VOLUME 9.7 fL (9.2-13.0); MONOCYTES 12.6 %; MONOCYTES ABSOLUTE 1.25 10/3/uL (0.21-1.20); NEUTROPHILS 75.2 %; NEUTROPHILS ABSOLUTE 7.44 10/3/uL (2.02-8.40); PLATELET COUNT 252 10/3/uL (150-400); RBC DISTRIBUTION WIDTH 18.1 % (12.0-16.0); RED CELL COUNT 4.49 10/6/uL (4.0-5.6); WHITE BLOOD CELLS 9.9 10/3/uL (4.5-10.5)
[2017-01-05 06:06] LABS: CHLORIDE, SERUM 106 MMOL/L (96-112); CO2 (CARBON DIOXIDE) 25 MMOL/L (24-34); CREATININE 1.02 MG/DL (0.55-1.02); GFR AFRICAN AMERICAN 62 ML/MIN (>=60); GFR NON AFRICAN AMERICAN 53 ML/MIN (>=60); PHOSPHORUS, SERUM 3.3 MG/DL (2.5-4.5); POTASSIUM, SERUM 4.3 MMOL/L (3.5-5.3); SODIUM, SERUM 140 MMOL/L (135-148)
[2017-01-05 06:10] LABS: BUN (BLOOD UREA NITROGEN) 22 MG/DL (6-23); GLUCOSE, SERUM 152 MG/DL (60-99)
[2017-01-06 05:48] LABS: BASOPHILS 0.1 %; BASOPHILS ABSOLUTE 0.01 10/3/uL (0.0-0.16); EOSINOPHILS 0.3 %; EOSINOPHILS ABSOLUTE 0.03 10/3/uL (0.0-0.53); HEMATOCRIT 39.7 % (36.0-48.0); HEMOGLOBIN 13.1 g/dL (12.0-16.0); IMMATURE GRANULOCYTES 1.1 %; LYMPHOCYTES 19.2 %; LYMPHOCYTES ABSOLUTE 1.72 10/3/uL (0.67-4.30); MEAN CORPUSCULAR HEMOGLOB 29.6 pg (26.0-34.0); MEAN CORPUSCULAR VOLUME 89.6 fL (80-100); MEAN PLATELET VOLUME 9.9 fL (9.2-13.0); MONOCYTES 14.3 %; MONOCYTES ABSOLUTE 1.28 10/3/uL (0.21-1.20); NEUTROPHILS ABSOLUTE 5.82 10/3/uL (2.02-8.40); PLATELET COUNT 252 10/3/uL (150-400); RBC DISTRIBUTION WIDTH 18.3 % (12.0-16.0); RED CELL COUNT 4.43 10/6/uL (4.0-5.6)
[2017-01-06 05:52] LABS: MANUAL DIFF NO %
[2017-01-06 06:09] LABS: A/G RATIO 0.6 (0.7-1.9); ALBUMIN 2.4 G/DL (3.5-5.0); ALKALINE PHOSPHATASE 57 U/L (45-117); CALCIUM, SERUM 8.4 MG/DL (8.5-10.4); CHLORIDE, SERUM 105 MMOL/L (96-112); CO2 (CARBON DIOXIDE) 26 MMOL/L (24-34); CREATININE 0.89 MG/DL (0.55-1.02); GFR AFRICAN AMERICAN 73 ML/MIN (>=60); GFR NON AFRICAN AMERICAN 63 ML/MIN (>=60); POTASSIUM, SERUM 4.2 MMOL/L (3.5-5.3); SGOT(AST) 28 U/L (5-40); SGPT(ALT) 16 U/L (5-65); SODIUM, SERUM 138 MMOL/L (135-148); TOTAL PROTEIN 6.4 G/DL (6.0-8.5)
[2017-01-06 06:10] LABS: BUN (BLOOD UREA NITROGEN) 18 MG/DL (6-23); GLUCOSE, SERUM 112 MG/DL (60-99); TOTAL BILIRUBIN 0.5 MG/DL (0-1.2)
[2017-01-08 04:53] LABS: BASOPHILS 0.1 %; BASOPHILS ABSOLUTE 0.01 10/3/uL (0.0-0.16); EOSINOPHILS 0.2 %; EOSINOPHILS ABSOLUTE 0.03 10/3/uL (0.0-0.53); HEMATOCRIT 38.8 % (36.0-48.0); HEMOGLOBIN 12.8 g/dL (12.0-16.0); IMMATURE GRANULOCYTES 0.3 %; IMMATURE GRANULOCYTES ABSOLUTE 0.04 10/3/uL (0.0-0.11); LYMPHOCYTES 13.2 %; MEAN CORPUSCULAR HEMOGLOB 29.8 pg (26.0-34.0); MEAN CORPUSCULAR VOLUME 90.2 fL (80-100); MEAN PLATELET VOLUME 9.6 fL (9.2-13.0); MONOCYTES 12.8 %; MONOCYTES ABSOLUTE 1.64 10/3/uL (0.21-1.20); NEUTROPHILS 73.4 %; NEUTROPHILS ABSOLUTE 9.44 10/3/uL (2.02-8.40); PLATELET COUNT 271 10/3/uL (150-400); RBC DISTRIBUTION WIDTH 18.6 % (12.0-16.0)
[2017-01-08 04:56] LABS: MANUAL DIFF NO %; WHITE BLOOD CELLS 12.9 10/3/uL (4.5-10.5)
[2017-01-08 05:04] LABS: CALCIUM, SERUM 8.2 MG/DL (8.5-10.4); CHLORIDE, SERUM 104 MMOL/L (96-112); CO2 (CARBON DIOXIDE) 26 MMOL/L (24-34); CREATININE 0.89 MG/DL (0.55-1.02); GFR AFRICAN AMERICAN 73 ML/MIN (>=60); GFR NON AFRICAN AMERICAN 63 ML/MIN (>=60); GLUCOSE, SERUM 121 MG/DL (60-99); POTASSIUM, SERUM 4.1 MMOL/L (3.5-5.3); SODIUM, SERUM 138 MMOL/L (135-148)
[2017-01-08 05:07] LABS: BUN (BLOOD UREA NITROGEN) 12 MG/DL (6-23)
[2017-01-09 05:50] LABS: A/G RATIO 0.5 (0.7-1.9); ALBUMIN 2.2 G/DL (3.5-5.0); BUN (BLOOD UREA NITROGEN) 9 MG/DL (6-23); CHLORIDE, SERUM 104 MMOL/L (96-112); CO2 (CARBON DIOXIDE) 27 MMOL/L (24-34); CREATININE 0.81 MG/DL (0.55-1.02); GFR AFRICAN AMERICAN 82 ML/MIN (>=60); GFR NON AFRICAN AMERICAN 71 ML/MIN (>=60); GLOBULIN 4.8 G/DL (2.5-4.1); GLUCOSE, SERUM 125 MG/DL (60-99); POTASSIUM, SERUM 4.2 MMOL/L (3.5-5.3); SGOT(AST) 17 U/L (5-40); SGPT(ALT) 15 U/L (5-65); SODIUM, SERUM 141 MMOL/L (135-148); TOTAL BILIRUBIN 0.7 MG/DL (0-1.2)
[2017-01-09 05:53] LABS: BASOPHILS 0.1 %; BASOPHILS ABSOLUTE 0.01 10/3/uL (0.0-0.16); EOSINOPHILS 1.1 %; EOSINOPHILS ABSOLUTE 0.13 10/3/uL (0.0-0.53); HEMATOCRIT 38.4 % (36.0-48.0); HEMOGLOBIN 12.7 g/dL (12.0-16.0); IMMATURE GRANULOCYTES 0.3 %; IMMATURE GRANULOCYTES ABSOLUTE 0.04 10/3/uL (0.0-0.11); LYMPHOCYTES 13.8 %; LYMPHOCYTES ABSOLUTE 1.62 10/3/uL (0.67-4.30); MEAN CORPUS HGB CONC 33.1 g/dL (32.0-36.0); MEAN CORPUSCULAR HEMOGLOB 29.7 pg (26.0-34.0); MEAN CORPUSCULAR VOLUME 89.9 fL (80-100); MEAN PLATELET VOLUME 9.2 fL (9.2-13.0); MONOCYTES 11.3 %; MONOCYTES ABSOLUTE 1.33 10/3/uL (0.21-1.20); NEUTROPHILS 73.4 %; PLATELET COUNT 294 10/3/uL (150-400); RBC DISTRIBUTION WIDTH 18.1 % (12.0-16.0); RED CELL COUNT 4.27 10/6/uL (4.0-5.6); WHITE BLOOD CELLS 11.7 10/3/uL (4.5-10.5)
[2017-01-09 06:02] LABS: MANUAL DIFF NO %
[2017-01-09 06:04] LABS: ALKALINE PHOSPHATASE 73 U/L (45-117)
[2017-01-10 04:19] LABS: BASOPHILS 0.1 %; BASOPHILS ABSOLUTE 0.01 10/3/uL (0.0-0.16); EOSINOPHILS 1.2 %; EOSINOPHILS ABSOLUTE 0.11 10/3/uL (0.0-0.53); HEMATOCRIT 41.9 % (36.0-48.0); HEMOGLOBIN 13.9 g/dL (12.0-16.0); IMMATURE GRANULOCYTES 0.3 %; IMMATURE GRANULOCYTES ABSOLUTE 0.03 10/3/uL (0.0-0.11); LYMPHOCYTES 17.1 %; LYMPHOCYTES ABSOLUTE 1.53 10/3/uL (0.67-4.30); MEAN CORPUS HGB CONC 33.2 g/dL (32.0-36.0); MEAN CORPUSCULAR HEMOGLOB 29.2 pg (26.0-34.0); MEAN PLATELET VOLUME 9.2 fL (9.2-13.0); MONOCYTES ABSOLUTE 1.25 10/3/uL (0.21-1.20); NEUTROPHILS 67.3 %; NEUTROPHILS ABSOLUTE 6.03 10/3/uL (2.02-8.40); PLATELET COUNT 331 10/3/uL (150-400); RBC DISTRIBUTION WIDTH 17.6 % (12.0-16.0); RED CELL COUNT 4.76 10/6/uL (4.0-5.6)
[2017-01-10 04:22] LABS: MANUAL DIFF NO %
[2017-01-11 04:58] LABS: BASOPHILS 0.1 %; BASOPHILS ABSOLUTE 0.01 10/3/uL (0.0-0.16); EOSINOPHILS 1.1 %; EOSINOPHILS ABSOLUTE 0.11 10/3/uL (0.0-0.53); HEMATOCRIT 41.8 % (36.0-48.0); HEMOGLOBIN 14.1 g/dL (12.0-16.0); IMMATURE GRANULOCYTES 0.3 %; IMMATURE GRANULOCYTES ABSOLUTE 0.03 10/3/uL (0.0-0.11); LYMPHOCYTES 21.2 %; LYMPHOCYTES ABSOLUTE 2.14 10/3/uL (0.67-4.30); MEAN CORPUS HGB CONC 33.7 g/dL (32.0-36.0); MEAN CORPUSCULAR HEMOGLOB 30.1 pg (26.0-34.0); MEAN CORPUSCULAR VOLUME 89.3 fL (80-100); MEAN PLATELET VOLUME 9.2 fL (9.2-13.0); MONOCYTES 10.4 %; MONOCYTES ABSOLUTE 1.05 10/3/uL (0.21-1.20); NEUTROPHILS 66.9 %; NEUTROPHILS ABSOLUTE 6.75 10/3/uL (2.02-8.40); PLATELET COUNT 397 10/3/uL (150-400); RBC DISTRIBUTION WIDTH 17.9 % (12.0-16.0); RED CELL COUNT 4.68 10/6/uL (4.0-5.6); WHITE BLOOD CELLS 10.1 10/3/uL (4.5-10.5)
[2017-01-11 04:59] LABS: MANUAL DIFF NO %
[2017-01-11 05:18] LABS: BUN (BLOOD UREA NITROGEN) 12 MG/DL (6-23); CALCIUM, SERUM 8.9 MG/DL (8.5-10.4); CHLORIDE, SERUM 102 MMOL/L (96-112); CO2 (CARBON DIOXIDE) 26 MMOL/L (24-34); CREATININE 1.09 MG/DL (0.55-1.02); GFR AFRICAN AMERICAN 57 ML/MIN (>=60); GFR NON AFRICAN AMERICAN 49 ML/MIN (>=60); GLUCOSE, SERUM 113 MG/DL (60-99); POTASSIUM, SERUM 3.5 MMOL/L (3.5-5.3); SODIUM, SERUM 139 MMOL/L (135-148)
[2017-01-11] MEDS ORDERED: ELIQUIS 5 MG TAB5 MG PO (14:54)
[2017-01-11] MEDS ORDERED: PACERONE200 MG PO (14:54)
[2017-01-11] MEDS ORDERED: LIPITOR40 PO (14:55)
[2017-01-11] MEDS ORDERED: MAX25 PO (14:56)
[2017-01-11] MEDS ORDERED: PCET PO (14:58)
[2017-03-12] MEDS ORDERED: NORV25 PO (10:45)
== END 2017-01-11 17:28 | disposition home or self-care (01) | DRG 270 ==
LOC: ER 18:30 → 7NO 18:55 → SDC/OF 01-04 11:09 → 5NO 01-04 12:31
PROVIDERS: Emergency Medicine; Hospitalist; Internal Medicine; Nurse Practitioner Acute Care; Nurse Practitioner Family; Student in an Organized Health Care Education/Training Program; Thoracic Surgery (Cardiothoracic Vascular Surgery)
PROC: 0W9D00Z Drainage of Pericardial Cavity with Drainage Device, Open Approach (ICD-10-PCS; principal; 2017-01-04 09:45)
DX: I31.3 Pericardial effusion (noninflammatory) (principal); J18.9 Pneumonia, unspecified organism; I50.23 Acute on chronic systolic (congestive) heart failure; N17.9 Acute kidney failure, unspecified; I11.0 Hypertensive heart disease with heart failure; I48.91 Unspecified atrial fibrillation; I47.1 Supraventricular tachycardia; E66.9 Obesity, unspecified; Z68.26 Body mass index [BMI] 26.0-26.9, adult
CPT/HCPCS: 36415; 71010; 71020; 71250; 71275; 78582; 80048; 80053; 80069; 81001; 83605; 83735; 83880; 84100; 84145; 84439; 84443; 84484; 85025; 85610; 85730; 86850; 86900; 86901; 86920; 87015; 87040; 87070; 87075; 87086; 87102; 87116; 87205; 87804; 88112; 88305; 93005; 93306; 99291; A9270-GY; A9540; A9567; J0153; J0282; J0690; J1956; J2250; J2370; J2405; J2710; J2795; J3010; Q9967